=== PATIENT | female | born 1970 | race Two or more races ===

== ENCOUNTER 2016-11-22 15:14 | Emergency (ER) | payer OTHER ==
[~2016-11-22 15:14] MED LIST: LAMISIL250 MG PO; NORCO 5/325 TAB1 TAB PO
[2016-11-22] MEDS ORDERED: NORCO 5-325 TA1 EACH PO (16:22)
== END 2016-11-22 16:33 ==
LOC: EDMED 15:14
DX: S61.212A Laceration without foreign body of right middle finger without damage to nail, initial encounter (principal); S60.221A Contusion of right hand, initial encounter; F17.200 Nicotine dependence, unspecified, uncomplicated; W23.0XXA Caught, crushed, jammed, or pinched between moving objects, initial encounter; Z90.49 Acquired absence of other specified parts of digestive tract